=== PATIENT | female | born 1975 | race Hispanic/Latino ===

== ENCOUNTER 2017-04-13 00:35 | Inpatient (IN) | payer MEDICAID, OTHER ==
[2017-04-13] VITALS (11 sets, daily range): BP systolic 124–143; BP diastolic 62–86; PULSE 63–71; RESP 16–20; O2SAT 94–100
[~2017-04-13] VITALS: Ht 160 cm; Wt 87.2 kg
--- NOTE | 2017-04-13 01:34 | ED.REPORT ---
HPI-Abd Pain F Under 42 Date of Service April 13, 2017 ED Provider: Bal Naranjo DO A healthy 41 year old female presents to the ED with RUQ abdominal pain onset yesterday. The pain is exacerbated with eating. The patient also reports intermittent nausea. She denies hematuria, fever, diarrhea, vomiting, or other symptoms. The patient was seen at [facility] yesterday and was given pain medication but no imaging was done. Nursing Notes Stated Complaint: R SIDED FLANK PAIN Chief Complaint: Female Abdominal Pain Nursing Notes Reviewed: Yes Allergies: Coded Allergies: No Known Allergies (Verified , 12/18/04) General Time Seen by MD: 01:33 Chief Complaint Abdominal pain Hx Obtained From: Patient Arrived By: Walk-in Sudden in Onset?: No Onset Occurred: Yesterday Symptom Duration: Since onset Location: : RUQ Quality: Painful Severity: Current: Moderate Severity: Maximum: Moderate Exacerbated by: Eating Recent Healthcare: Recent doctor visit Past Medical History Past Medical History None reported Past Surgical History None reported Smoking History Unknown if Ever Smoker Social History Other Social History: Good social support Ambulatory Status Independent Review of Systems Constitutional: Denies: Fever Respiratory: Denies: Non-productive cough, Shortness of breath GI: Reports: Abdominal pain (RUQ), Nausea (Intermittent), Denies: Diarrhea, Vomiting Female: Denies: Hematuria Complete sys rev & neg: except as marked. Physical Exam Initial Vital Signs Vital Signs (First) Date Time Temp Pulse Resp B/P Pulse Ox O2 Delivery O2 Flow Rate FiO2 04/13/17 00:37 36.4 68 16 135/83 99 Room Air Initial VS: Reviewed Head / Eyes: Atraumatic, Normocephalic ENT: Conjunctiva normal, No scleral icterus Neck: Supple, Full range of motion Skin: Warm, Dry, No cyanosis Neurologic: Alert, Oriented, Nonfocal Psychiatric: Mood/affect normal, Behavior normal, Normal thought content General/Constitutional: Awake, Alert Respiratory / Chest: No respiratory distress Abdomen: Soft Tenderness/Guarding/Rebound: Positive: Blackwell's sign positive, Tender RUQ... Interpretation & Diagnostics Lab Results Interpretation Result Diagram: 04/13/17 0150 04/13/17 0150 Test 04/13/17 01:50 04/13/17 02:10 White Blood Count 10.8th/mm3 (3.8-10.1) Red Blood Count 4.28mil/mm3 (3.90-5.20) Hemoglobin 10.5g/dL (12.0-15.6) Hematocrit 33.6% (35.0-46.0) Mean Corpuscular Volume 78.5fL (81-100) Mean Corpuscular Hemoglobin 24.5pg (27.0-35.0) Mean Corpuscular Hemoglobin Concent 31.3% (32.0-37.0) Red Cell Distribution Width 16.4% (12.3-15.4) Platelet Count 255bil/L (150-400) Neutrophils (%) (Auto) 65.1% (40-74) Lymphocytes (%) (Auto) 21.7% (14-46) Monocytes (%) (Auto) 9.8% (4-12) Eosinophils (%) (Auto) 2.5% (0-5) Basophils (%) (Auto) 0.6% (0-3) Sodium Level 137mEq/L (134-144) Potassium Level 4.3mEq/L (3.5-5.2) Chloride Level 104mEq/L (97-108) Carbon Dioxide Level 21mmol/L (18-29) Blood Urea Nitrogen 8mg/dL (6-20) Creatinine 0.43mg/dL (0.57-1.00) Estimat Glomerular Filtration Rate 234mL/min (>59) Glucose Level 101mg/dL (60-99) Lactic Acid Level 0.8mmol/L (0.4-2.0) Calcium Level 10.4mg/dL (8.5-10.1) Magnesium Level 1.9mg/dL (1.6-2.6) Total Bilirubin 0.3mg/dL (0.0-1.2) Aspartate Amino Transf (AST/SGOT) 91U/L (0-50) Alanine Aminotransferase (ALT/SGPT) 110U/L (0-32) Alkaline Phosphatase 163U/L (25-150) Total Protein 8.1g/dL (6.4-8.4) Albumin 4.1g/dL (3.4-5.0) Lipase 28U/L (13-60) Urine Color Yellow (YELLOW) Urine Appearance Clear (CLEAR,HAZY) Urine pH 6.5 (5.0-8.0) Urine Specific [place] 1.015 (1.003-1.035) Urine Protein Negativemg/dL (NEG,TRACE) Urine Glucose (UA) Negativemg/dL (NEGATIVE) Urine Ketones Negativemg/dL (NEGATIVE) Urine Occult Blood Negative (NEGATIVE) Urine Nitrite Negative (NEGATIVE) Urine Bilirubin Negative (NEGATIVE) Urine Urobilinogen Normalmg/dL (NORMAL) Urine Leukocyte Esterase Trace (NEGATIVE) Urine RBC 0-2/hpf (0-2) Urine WBC 0-5/hpf (0-5) Urine Epithelial Cells Few/hpf (NONE-MOD) Urine Crystals None seen (NONE SEEN) Urine Bacteria Few/hpf (NONE-FEW) Urine Hyaline Casts None/lpf (NONE) Urine Granular Casts None seen (NONE SEEN) Urine Waxy Casts None seen (NONE SEEN) Urine Red Blood Cell Casts None seen (NONE SEEN) Urine White Blood Cell Casts None seen (NONE SEEN) Urine Mucus None seen (None Seen) Urine Trichomonas None seen (NONE SEEN) Urine Yeast None (NONE SEEN) Urine Culture Reflexed Indicated Re-Eval/Medical Decision Med Decision/Clinical Course 41-year-old female presents with right upper quadrant pain. She is found to have tenderness or positive clinical Blackwell's. She has no white blood cell count and transaminases. Her alkaline phosphatase is also elevated. We will place an IV and treat her pain symptomatically with IV Dilaudid. We will perform an ultrasound to evaluate for acute cholecystitis. Care endorsed to Dr. Diaz at the conclusion of my shift. Ultrasound reveals gallbladder wall thickening and multiple stones but no evidence of pericholecystic fluid and no ductal dilatation. Discussed with Dr. Duran will admit for cholecystectomy today. Admission orders written. Zosyn given. Transported in stable condition. Re-Evaluation/Progress : Time of Eval: 02:50 Patient Status: Condition improved Re-Evaluation/Progress Note: Discussed with patient plan for US and transfer of care to Dr. Diaz at change of shift. She agrees and all questions were addressed. Discharge & Departure Shift Change Sign-Out Patient Care Transferred: Yes (Dr. Diaz) Discussed Complaint(s): Yes Laboratory Evaluation: Ordered, not yet done Imaging Studies: Ordered, not yet done Response to Therapy: Improved Primary Impression: Acute cholecystitis Additional Impressions: Cholelithiases Leukocytosis Leukocytosis type: unspecified Qualified Code: D72.829 - Elevated white blood cell count, unspecified Abnormal liver enzymes Disposition: ADMITTED TO HOSPITAL Discharge Condition All VS Reviewed: Yes Referrals: NOPCP (PCP) [facility] Care Transferred to: Dr. iDaz Care Transferred at: 03:00 Scribe Attestation Portions of this note were transcribed by Tarah Deluca. I, Dr. Naranjo, personally performed the history, physical exam, and medical decision-making; I reviewed and confirmed the accuracy of the information in the transcribed note. Signed by: Rik Oquendo, 04/13/2017, 03:15 copies to: [facility] Bal Naranjo DO April 13, 2017 01:34 TARAH DELUCA April 13, 2017 01:41 Tc Diaz MD April 13, 2017 06:44
[2017-04-13] MEDS ORDERED: 0.9% Sodium Chloride 1,000 ML IV ONE (01:38)
[2017-04-13] MEDS ORDERED: HYDROmorphone 1 mg/mL Inj IVPUSH PRN ×2 (01:40→20:00)
[2017-04-13] MEDS: Ondansetron 2 mg/mL 2 mL Inj IVPUSH PRN ×2 (02:20→05:00)
[2017-04-13 02:29] LABS: BASOPHILS % (AUTO) 0.6 % (0-3); EOSINOPHILS % (AUTO) 2.5 % (0-5); MONOCYTES % (AUTO) 9.8 % (4-12); Magnesium 1.9 mg/dL (1.6-2.6); Mean Corpuscular Hemoglobin 24.5 pg (27.0-35.0); Mean Corpuscular Volume 78.5 fL (81-100); NEUTROPHILS % (AUTO) 65.1 % (40-74); Platelet Count 255 bil/L (150-400)
[2017-04-13 02:36] LABS: APPEARANCE,URINE CLEAR (CLEAR,HAZY); COLOR,URINE YELLOW (YELLOW); OCCULT BLOOD,URINE NEGATIVE (NEGATIVE); PH,URINE 6.5 (5.0-8.0); UROBILINOGEN,URINE NORMAL (NORMAL)
[2017-04-13] MEDS ORDERED: Piperacillin-Tazo 3.375 Gm Inj 3.375 GM in Dextrose 5% Minibag Plus 50 ML IV ONE (05:15)
[2017-04-13] MEDS ORDERED: Lactated Ringer's 1,000 ML IV SCH ×2 (06:02→19:58)
[2017-04-13] MEDS ORDERED: MetoCLOpramide 5 mg/mL 2 mL Inj IVPUSH PRN ×3 (06:05→20:00)
[2017-04-13] MEDS ORDERED: Ondansetron 2 mg/mL 2 mL Inj IVPUSH PRN ×3 (06:05→20:00)
[2017-04-13] MEDS ORDERED: HYDROmorphone PCA 0.2 mg/mL 30 mL Inj IV PRN ×2 (06:05→12:05)
[2017-04-13] MEDS ORDERED: Neostigmine 1 mg/mL 10 mL Inj ONE (07:10)
[2017-04-13] MEDS ORDERED: Glycopyrrolate 0.2 MG/ML 1mL Inj ONE (07:10)
[2017-04-13] MEDS ORDERED: Ondansetron 2 mg/mL 2 mL Inj ONE (07:10)
[2017-04-13] MEDS ORDERED: Propofol 10,000 mCg/mL 20 mL Inj ONE (07:10)
[2017-04-13] MEDS ORDERED: Rocuronium 10 mg/mL 5 mL Inj ONE (07:10)
[2017-04-13] MEDS ORDERED: Dexamethasone 4 mg/mL Inj ONE (07:10)
[2017-04-13 07:41] LABS: INR 0.92 ratio
--- NOTE | 2017-04-13 08:49 | HP ---
[address] [address] HISTORY AND PHYSICAL PATIENT: CRISTEL SAMANO : 1975 MR#: [id number] ADMIT: 04/13/2017 JOB ID: [id number] CHIEF COMPLAINT: Cholelithiasis possible cholecystitis. HISTORY OF PRESENT ILLNESS: The patient is a 41-year-old female who presented to the emergency room overnight due to abdominal pain. This pain actually started Friday morning which is 2 days ago. It was described to be in the epigastric region and gradually moved over to the right upper quadrant. This is the first time she has never had this discomfort. It is described to be a sharp pain that comes and goes. The patient has some associated nausea, but no vomiting. The patient denies any fevers or chills. Workup last night in the emergency department demonstrated a white blood count of 10.8, she has some elevation of her AST, ALT, as well as alkaline phosphatase and then ultrasound that suggests cholelithiasis with some gallbladder wall thickening. The patient was given some pain meds in the emergency department. The patient has been started on IV antibiotics. PAST MEDICAL HISTORY: None. MEDICATIONS: None. ALLERGIES: None. SOCIAL HISTORY: The patient is single. She does have 5 children. She has a boyfriend. She works for [employer], and she lives in [place]. FAMILY HISTORY: Does show gallbladder disease in her mother and her sister. REVIEW OF SYSTEMS: Positive for the epigastric and right upper quadrant pain with nausea. All other systems reviewed were negative. PHYSICAL EXAMINATION: The patient is currently in the hospital bed in no acute distress. Her BMI is 33.7, temperature was 36.7, blood pressure 137/86, pulse is 71, respirations 16. Head is normocephalic, atraumatic. There is no scleral icterus. Neck is supple. Heart is regular rate. Lungs are clear bilaterally. Abdomen is obese. It is mildly tender to palpation in the epigastric and also right upper quadrant location. There is no palpable masses. There is no peritonitis at this time. Extremities shows no clubbing and no cyanosis. Neurologically, patient is Korean speaking and follows commands. LABORATORY EXAMINATION: Last night showed a white blood count of 10.8, hematocrit 33.6, platelet count is 255. Sodium is 137, potassium 4.3, creatinine 0.43. Total bilirubin 0.3, AST 91, ALT 110. Alkaline phosphatase of 163 and her lipase is 28. Her urine was negative. The primary overnight ultrasound report shows cholelithiasis and gallbladder wall thickening concerning for cholecystitis. ASSESSMENT: This is a 41-year-old female with cholelithiasis and possible cholecystitis. The patient should remain n.p.o. and she should be continued on IV antibiotics. We will try to get her into the operating room for later today. The patient understands and agrees with the plan and has signed a surgical consent.
--- NOTE | 2017-04-13 08:55 | DRSVH ---
PROCEDURE: US ABDOMEN, LIMITED ([id number]) INDICATIONS: RUQ pain TECHNIQUE: Real-time focused scanning was performed of the abdomen, with image documentation. COMPARISON: None. FINDINGS: Multiple gallstones noted within the gallbladder. Gallbladder wall is slightly thickened to 3.7 mm. No pericholecystic fluid. Common bile duct is within normal limits measuring 5 mm in diamete r. No sonographic Blackwell sign. Liver is sonographically normal. IMPRESSION: Cholelithiasis with slight gallbladder wall thickening concerning for early acute cholecy stitis. Please correlate with clinical data. Dictated by: Kiki Palmer MD, PhD on 04/13/2017 at 8:53 Approved by: Kiki Palmer MD, PhD on 04/13/2017 at 8:53
[2017-04-13] MEDS: Lactated Ringer's 1,000 ML IV SCH ×2 (11:55→21:55)
[2017-04-13] MEDS: Piperacillin-Tazo 3.375 Gm Inj 3.375 GM in Dextrose 5% Minibag Plus 50 ML IV SCH (13:37)
--- NOTE | 2017-04-13 14:59 | NUR ---
Admit Pt arrived at 0645 via w/c, transfers w/ ease, A&Ox3. Pt is an otherwise very healthy and well adult, nausea and pain well managed w/ dilaudid and zofran. Pt awaiting surgery lap kelin at 4pm today.
--- NOTE | 2017-04-13 15:48 | NUR ---
Social Work Note: Screen Note Data& Assessment: EMR reviewed. Patient is a 41 year old female admitted on 04/13/17 for Acute Cholecystitis. Pt has [facility] Admin for insurance coverage and no primary care physician. Pt lives in [place] and is independent at baseline. Pt is currently SBA in her room. No discharge needs identified at this time. SW to continue to follow if any needs arise. Plan: Anticipated discharge home via POV when medically ready. No discharge needs identified at this time. SW to continue to follow if any needs arise. Rika Ayala, ANAMARIA, ACM
--- NOTE | 2017-04-13 18:06 | PCM.HPANE ---
Patient Data Surgeon Admitting Provider:Eliu Duran MD Attending Provider:Eliu Duran MD Primary Care Physician:Maame Other Provider:Corrina Law Anesthesia Reason for Visit Acute Cholecystitis Ht/WT & BMI Height (Feet): 5 Height (Inches): 3.00 Weight (Kilograms): 87.200 Body Mass Index 34.06 Allergies Coded Allergies: No Known Allergies (Verified , 12/18/04) Past Anesthesia History Anesthesia History: Denies:: Fam Anesthesia Reaction, Fam Malignant Hypertherm Diabetes History Hx Diabetes?: No MRSA MRSA: No Medications No Active Prescriptions or Reported Meds History History of ENT Problems?: No HEENT History: Denies:: Cataracts Dysphagia Glaucoma Sinus Problem Denture Type: None Teeth Condition: Within Normal Limits Hx of Heart Problems?: No Cardiovascular History: Denies:: Congestive Heart Failure Edema Hypertension Hx of Respiratory Problem?: No Respiratory History: Denies:: Asthma Pneumonia Tuberculosis Hx Neurologic Problems?: No Neurological History: Denies:: CVA Seizures Hx of GI Problems?: No Hx of Problems?: No Genitourinary History: Denies:: Kidney Stones Urinary Tract Infection Female Hx: Denies:: Endometriosis Pelvic Inflammatory Hx Musculoskeletal Problems?: No Musculoskeletal History: Denies:: Musculoskeletal Trauma Psycho Social History: Positive for:: Anxiety Denies:: Bipolar Disorder Hx Depression Suicide Attempt Hx Surgeries?: No Hx Any Other Health Problems?: No Other History: Denies:: Cancer History Blood Transfusions: Positive for:: Accept Blood Products? Denies:: Blood Transfuse Reaction Blood Transfusions Hx Diabetes: No Hx Alcohol Use: NoHx Substance Use: No Smoking Status: Unknown if Ever Smoker Stop/Bang Treated for Sleep Apnea?: No Do You Have a CPAP Machine?: No S-Snoring: Do You Snore Loudly: No T-Tired: feel tired, fatigued: No O-Obsered: Observed not breath: No P-Blood Pressure: treated: No B- Body Mass Index > 35 kg/m2: No A- Age over 50: No N- Neck Large Circumference: No G- Gender Male: No TAMIKO Total Score: 0 TAMIKO Risk Assessment: Low Risk, <3 Yes Risk Assessment Category Category 1A: Patient has history of documented sleep apnea, and HAS NOT received any narcotic, sedative or anesthesia administration during this stay. Category 1B: Patient has history of documented sleep apnea, and HAS received any narcotic , sedative or anesthesia administration during this stay Category 2: Patient has SUSPECTED Obstructive Sleep Apnea, and HAS received any narcotic , sedative or anesthesia administration during this stay. Category 3: Patient has SUSPECTED Obstructive Sleep Apnea and HAS NOT received narcotic, sedative or anesthesia administration during this stay. Category 4: Outpatient in Procedural Areas with known sleep apnea or who screen positive for High Risk via the STOP/BANG questionnaire. Exam Exam Vital Signs Vital Signs Date Time Temp Pulse Resp B/P Pulse Ox O2 Delivery O2 Flow Rate FiO2 04/13/17 12:33 36.9 63 16 124/78 99 Room Air General Appearance: Alert, Oriented X3, Cooperative, No Acute Distress HEENT/AIRWAY: MP 4 Lungs: Clear to Auscultation, Normal Air Movement Heart: Exam Unremarkable, Regular Rate/Rhythm, No Murmurs/Rubs/Gallops Meds/Labs/Diagnostics Admission Meds Current Medications Sodium Chloride 1,000 ml @ 0 mls/hr Q0M ONCE IV Last administered on 02:19; Start 04/13/17 at 01:38; Stop 04/13/17 at 01:40; Status DC Piperacillin Sod/ Tazobactam Sod 3.375 gm/Dextrose/ Water 50 ml @ 100 mls/hr ONCE ONCE IV Last administered on 04/13/17 05:19; Start 04/13/17 at 05:15; Stop 04/13/17 at 05:44; Status DC Lactated Ringer's 1,000 ml @ 100 mls/hr Q10H IV Last administered on 06:02; Start 04/13/17 at 06:02; Stop 04/13/17 at 08:08; Status DC Piperacillin Sod/ Tazobactam Sod/ Dextrose/Water (Zosyn 3.375 Gm Inj/D5W Minibag Plus) 50 ml @ 12.5 mls/hr Q8H IV Last administered on 04/13/17 13:37 ; Start 04/13/17 at 13:30 Labs Test 04/13/17 01:50 04/13/17 02:10 04/13/17 07:10 White Blood Count 10.8th/mm3 (3.8-10.1) Red Blood Count 4.28mil/mm3 (3.90-5.20) Hemoglobin 10.5g/dL (12.0-15.6) Hematocrit 33.6% (35.0-46.0) Mean Corpuscular Volume 78.5fL (81-100) Mean Corpuscular Hemoglobin 24.5pg (27.0-35.0) Mean Corpuscular Hemoglobin Concent 31.3% (32.0-37.0) Red Cell Distribution Width 16.4% (12.3-15.4) Platelet Count 255bil/L (150-400) Neutrophils (%) (Auto) 65.1% (40-74) Lymphocytes (%) (Auto) 21.7% (14-46) Monocytes (%) (Auto) 9.8% (4-12) Eosinophils (%) (Auto) 2.5% (0-5) Basophils (%) (Auto) 0.6% (0-3) Sodium Level 137mEq/L (134-144) Potassium Level 4.3mEq/L (3.5-5.2) Chloride Level 104mEq/L (97-108) Carbon Dioxide Level 21mmol/L (18-29) Blood Urea Nitrogen 8mg/dL (6-20) Creatinine 0.43mg/dL (0.57-1.00) Estimat Glomerular Filtration Rate 234mL/min (>59) Glucose Level 101mg/dL (60-99) Lactic Acid Level 0.8mmol/L (0.4-2.0) Calcium Level 10.4mg/dL (8.5-10.1) Magnesium Level 1.9mg/dL (1.6-2.6) Total Bilirubin 0.3mg/dL (0.0-1.2) Aspartate Amino Transf (AST/SGOT) 91U/L (0-50) Alanine Aminotransferase (ALT/SGPT) 110U/L (0-32) Alkaline Phosphatase 163U/L (25-150) Total Protein 8.1g/dL (6.4-8.4) Albumin 4.1g/dL (3.4-5.0) Lipase 28U/L (13-60) Urine Color Yellow (YELLOW) Urine Appearance Clear (CLEAR,HAZY) Urine pH 6.5 (5.0-8.0) Urine Specific [place] 1.015 (1.003-1.035) Urine Protein Negativemg/dL (NEG,TRACE) Urine Glucose (UA) Negativemg/dL (NEGATIVE) Urine Ketones Negativemg/dL (NEGATIVE) Urine Occult Blood Negative (NEGATIVE) Urine Nitrite Negative (NEGATIVE) Urine Bilirubin Negative (NEGATIVE) Urine Urobilinogen Normalmg/dL (NORMAL) Urine Leukocyte Esterase Trace (NEGATIVE) Urine RBC 0-2/hpf (0-2) Urine WBC 0-5/hpf (0-5) Urine Epithelial Cells Few/hpf (NONE-MOD) Urine Crystals None seen (NONE SEEN) Urine Bacteria Few/hpf (NONE-FEW) Urine Hyaline Casts None/lpf (NONE) Urine Granular Casts None seen (NONE SEEN) Urine Waxy Casts None seen (NONE SEEN) Urine Red Blood Cell Casts None seen (NONE SEEN) Urine White Blood Cell Casts None seen (NONE SEEN) Urine Mucus None seen (None Seen) Urine Trichomonas None seen (NONE SEEN) Urine Yeast None (NONE SEEN) Urine Culture Reflexed Indicated Prothrombin Time 9.8sec (8.1-12.5) Prothromb Time International Ratio 0.92ratio Plan Impression Patient chart reviewed, patient interviewed and anesthestic plan with risks, benefits, and alternatives discussed, and informed consent obtained. NPO per Anesth. Guidelines: Yes ASA Physical Status: ASA2 Mod Systemic Disease Anesthetic Plan: GA Bene/Risks/Altern/Consents: Yes HP Complete Prior to Induction: Yes Lon Hernandez MD April 13, 2017 18:06
[2017-04-13] MEDS ORDERED: Lactated Ringer's 1,000 ML IV ONE ×2 (19:19→21:24)
[2017-04-13] MEDS ORDERED: Bupivacaine-MPF 0.25%/EPI 30 mL Inj INFILTRATE ONE (19:45)
[2017-04-13] MEDS ORDERED: Lactated Ringer's 500 ML IV PRN (19:58)
[2017-04-13] MEDS ORDERED: fentaNYL-PF 50 mCg/mL 2 mL Inj IVPUSH PRN (20:00)
[2017-04-13] MEDS ORDERED: Phenylephrine 10,000 mCg/mL Inj IVPUSH PRN (20:00)
[2017-04-13] MEDS ORDERED: Labetalol 5 mg/mL 4 mL Inj IV PRN (20:00)
[2017-04-13] MEDS ORDERED: Dexamethasone 4 mg/mL Inj IVPUSH PRN (20:00)
[2017-04-13] MEDS ORDERED: EPHEDrine Sulfate 50 mg/mL Inj IVPUSH PRN (20:00)
[2017-04-13] MEDS ORDERED: Atropine 0.4 mg/mL Inj IVPUSH PRN (20:00)
--- NOTE | 2017-04-13 20:44 | DRSVH ---
PROCEDURE: X-RAY OPERATIVE CHOLANGIOGRAM ([id number]) INDICATIONS: CHOLECYSTITIS COMPARISON: None. FINDINGS: Biliary ducts: The surgeon injected contrast into the biliary ducts after cannulation of the cystic duct stump. Visualized intra- and extrahepatic bile ducts are normal in caliber, without strictures. Focal filling defects noted in the distal common bile duct suspicious for choledocholithiasis. No e vidence for iatrogenic ductal injury. Duodenum: Contrast flows promptly through the sphincter of Oddi into the duodenum, which appears nor mal in caliber. IMPRESSION: Multiple filling defects in the distal common bile duct suspicious for choledocholithias is. Please correlate with real time findings. Dictated by: Kiki Palmer MD, PhD on 04/13/2017 at 20:41 Approved by: Kiki Palmer MD, PhD on 04/13/2017 at 20:42
--- NOTE | 2017-04-13 21:09 | PCM.ANEP1 ---
Post Anesthesia PACU Phase 1 Assessment Vital Signs Vital Signs Date Time Temp Pulse Resp B/P Pulse Ox O2 Delivery O2 Flow Rate FiO2 04/13/17 21:05 36.8 71 18 133/70 100 Simple Mask 8 Anesthetic Administered: GA Level of Alertness: Awake, talking NICHOLSON's with Equal Strength: No Pain: No Pain Scale Score: 5 Nausea or Vomiting: No CV Function and Hydration: Yes Airway Device: Endotrachial Tube Oxygen Delivery: Simple Mask Lungs: Clear to Auscultation, Normal Air Movement Dermatome Level: Full Sensation PACU Phase 2 Assessment Complications: No Follow up Care: N/A Patient Instructions Provided: Yes Lon Hernandez MD April 13, 2017 21:09
--- NOTE | 2017-04-13 21:35 | OP ---
[address] [address] OPERATIVE REPORT PATIENT: CRISTEL SAMANO : 1975 MR#: [id number] ADMIT: 04/13/2017 JOB ID: [id number] DATE OF SURGERY: 04/13/2017 SURGEON: Eliu Duran MD. CLEANER AND POLISHER: Chico Lizama PA-C. ANESTHESIA: General. PREOPERATIVE DIAGNOSIS(ES): Cholelithiasis and possible cholecystitis. POSTOPERATIVE DIAGNOSIS(ES): Cholelithiasis and possible cholecystitis. PROCEDURE: Laparoscopic cholecystectomy with intraoperative cholangiogram. INDICATION FOR PROCEDURE: The patient is a 41-year-old female with epigastric and right upper quadrant pain with ultrasound findings of gallstones and gallbladder wall thickening. PRINCIPAL FINDING: Successful laparoscopic cholecystectomy. There were signs of cholecystitis. The intraoperative angiogram demonstrated numerous filling defects in the distal common bile duct. The contrast does enter into the duodenum. PROCEDURE COURSE: The patient was brought to the operating table and was given general anesthesia. The patient had been receiving IV antibiotics and she was provided with SCDs. A time-out was performed. The patient's abdomen was then prepped and draped in the usual sterile fashion. Next, local anesthetic was injected into the infraumbilical location and a 5 mm stab incision was made. Pneumoperitoneum was established using a Veress needle. Next, a 5 mm trocar was then placed and the laparoscope was then introduced. A 12 mm port was then placed in the subxiphoid location and two additional 5 mm ports were then placed in the right lateral abdomen. The gallbladder was then retracted cephalad. Some omental adhesions were taken down using electrocautery. Dissection of the Calot triangle was then carried out. The cystic duct was able to be circumferentially isolated. A clip was then placed on the gallbladder cystic duct junction, and a partial transection of the cystic duct was made. Intraoperative cholangiogram demonstrated filling of the proximal and distal biliary anatomy. However, there were several filling defects in the distal common bile duct. The contrast does enter the duodenum. Next, the cholangiocatheter was then was then removed from the patient. Two additional clips were then placed on the proximal cystic duct and the duct was then transected. The cystic artery was similarly identified, clipped, and divided. Electrocautery was then used to detach the gallbladder from the gallbladder fossa. The specimen was then placed into the EndoCatch bag and removed from the patient. There were definite several large stones within the gallbladder. Irrigation of the right upper quadrant was carried out and suctioned. Hemostasis was verified. Inspection of the clips showed that they were intact, and there were no signs of arterial bleeding or bile leak at the end the case. Next, we turned our attention to the subxiphoid port. The fascial defect there was then reapproximated using 0 Vicryl suture using the Endo Close device. Next, CO2 was allowed to escape and all the trocars were then removed from the patient. Skin edges were all reapproximated using absorbable sutures. Steri-Strips and sterile dressing was then placed over each wound. By the end of procedure, needle counts and sponge counts were correct. The patient was then extubated and taken to the recovery room in stable satisfactory condition.
--- NOTE | 2017-04-13 21:45 | NUR ---
Transfer Patient arrived to unit, alert and oriented, able to transfer self from or bed to unit bed independently. IV intact, patent and asymptomatic. BUILDING WRECKER set up and educated patient and family on proper use. Orders for Zosyn conflicted with current LR order. Surgeon notified and order for compatible fluids obtained. Patient comfortable at this time.
[2017-04-14] VITALS (19 sets, daily range): BP systolic 118–144; BP diastolic 67–82; PULSE 52–82; RESP 12–20; O2SAT 94–100
[2017-04-14] MEDS: Piperacillin-Tazo 3.375 Gm Inj 3.375 GM in Dextrose 5% Minibag Plus 50 ML IV SCH ×4 (00:48→21:17)
[2017-04-14] MEDS: Dextrose 5% 1,000 ML IV SCH ×3 (03:03→21:20)
[2017-04-14 05:30] LABS: BASOPHILS % (AUTO) 0.1 % (0-3); EOSINOPHILS % (AUTO) 0 % (0-5); MONOCYTES % (AUTO) 1.8 % (4-12); Mean Corpuscular Hemoglobin 24.2 pg (27.0-35.0); Mean Corpuscular Volume 78.4 fL (81-100); NEUTROPHILS % (AUTO) 92.2 % (40-74); Platelet Count 232 bil/L (150-400)
[2017-04-14] MEDS ORDERED: Neostigmine 1 mg/mL 10 mL Inj ONE (07:47)
[2017-04-14] MEDS ORDERED: Rocuronium 10 mg/mL 5 mL Inj ONE (07:47)
[2017-04-14] MEDS ORDERED: fentaNYL-PF 50 mCg/mL 2 mL Inj ONE ×2 (07:47→07:56)
[2017-04-14] MEDS ORDERED: Propofol 10,000 mCg/mL 20 mL Inj ONE ×2 (07:47→07:56)
[2017-04-14] MEDS ORDERED: Glycopyrrolate 0.2 MG/ML 1mL Inj ONE (07:47)
[2017-04-14] MEDS ORDERED: Ondansetron 2 mg/mL 2 mL Inj ONE (07:56)
[2017-04-14] MEDS ORDERED: Dexamethasone 4 mg/mL Inj ONE (07:56)
--- NOTE | 2017-04-14 08:37 | PCM.PNSURG ---
Subjective Date of Service: April 14, 2017 Date of Service: April 14, 2017 Visit Information: Reason for Visit Acute Cholecystitis Surgery/Surgery Date lap kelin 04/13/17 Post-Op Day # Date of Admission: April 13, 2017 at 06:18 Hospital Day # Subjective: Patient states mild abdominal pain, 2 out of 10 while at rest, Will increase upon movement though is well controlled with pain medication. Is able to swallow clear liquids. No nausea or vomiting. Able to ambulate independently, voiding urine without difficulty. Denies bowel movement, or flatus at this point. Denies fever or chills. White count increased from 10.8 to17.2, patient afebrile all other vital signs remained stable. Objective Vital Sign- Last 8 Hours Date Time Temp Pulse Resp B/P Pulse Ox O2 Delivery O2 Flow Rate FiO2 04/14/17 08:17 18 97 04/14/17 06:16 18 98 04/14/17 04:51 36.8 80 18 136/75 98 Room Air 04/14/17 01:30 16 97 Intake and Output- Last 8 Hour 04/14/17 Cumulative From/Thru 07:00 04/13/17 00:37 - 04/14/17 06:35 Intake Total 619 ml 3607 ml Output Total 800 ml Balance 619 ml 2807 ml Intake Oral 200 ml 200 ml IV Total 419 ml 3407 ml Output Urine Total 800 ml # Voids 1 1 General: Alert, Oriented X3, Cooperative Lungs: Clear to Auscultation, Normal Air Movement Heart: Exam Unremarkable, Regular Rate/Rhythm Abdomen: Benign, Appropriately tender SURGICAL WOUND : Wound General Appearence: Steri Strips, Intact, No Erythema, No Discharge, No Inflammatory Changes Result Diagram: 04/14/17 0445 04/14/17 0445 Diagnostics: . US ABDOMEN, LIMITED IMPRESSION: Cholelithiasis with slight gallbladder wall thickening concerning for early acute cholecystitis. Please correlate with clinical data. Dictated by: Kiki Palmer MD, PhD on 04/13/2017 at 8:53 X-RAY OPERATIVE CHOLANGIOGRAM IMPRESSION: Multiple filling defects in the distal common bile duct suspicious for choledocholithiasis. Please correlate with real time findings. Dictated by: Kiki Palmer MD, PhD on 04/13/2017 at 20:41 Assessment & Plan Impression Assessment and Plan: 1. Cholelithiasis with probable cholecystitis status post laparoscopic cholecystectomy with intraoperative cholangiogram - ERCP 2/2 retained stones - GI consult - Transitioned from PUBLISHING EDITOR pain medications to oral - Continue to encourage ambulation - Continue antibiotics - Continue to monitor CBC - Restart heparin subcutaneous Problems: VTE Prophylaxis: Sub-Q Heparin (Unfractionated) Resuscitation Status: CPR: Attempt Resuscitation Attending Statement: I agree with Dr. Howard's assessment and plan. ERCP per GI service. NONI HOWARD DO April 14, 2017 08:37 Eliu Duran MD April 17, 2017 07:45
[2017-04-14] MEDS ORDERED: Heparin 5,000 Unit/mL Inj SUBQ SCH (08:50)
[2017-04-14] MEDS: oxyCODONE-Acetamin 5-325 mg Tablet PO PRN ×3 (10:24→22:44)
--- NOTE | 2017-04-14 11:01 | PCM.CHPMED ---
Subjective Date of Service: April 14, 2017 Provider requesting consult: Eliu Duran MD Primary Physician: Admitting Physician: Eliu Duran MD Primary Care Physician: Nopcp Attending Physician: Eliu Duran MD Chief Complaint: Chief Complaint: Right upper quadrant pain History of Present Illness: 41-year-old female presented to the ED on April 13 due to 2 days of sharp and intermittent right upper quadrant abdominal pain with some associated nausea but no vomiting. Patient states that this pain started on April 11 and has increasingly gotten worse. She denies any fever or chills associated with this pain. Patient has not had this pain before and states that is worse postprandially. In the ED the patient was noted to have elevated LFTs and alkaline phosphatase, as well as anemia and a mild leukocytosis. Patient underwent cholecystectomy yesterday by Dr. Duran with cholangiogram showing multiple filling defects consistent and concerning for choledocholithiasis. GI was consultative for ERCP. Review of Systems: See history of present illness PMH Past Medical History Patient states she has no past medical history Bedside Blood Glucose: 147 Surgical History Patient states she has no past surgical history Home Medications Patient denies taking her medication Allergies: Coded Allergies: No Known Allergies (Verified , 12/18/04) Family History Family History Denies history of cancer Social History Hx Alcohol Use: NoHx Substance Use: No Smoking Status: Unknown if Ever Smoker Exam Vital Signs Vital Sign - Last Date Time Temp Pulse Resp B/P Pulse Ox O2 Delivery O2 Flow Rate FiO2 04/14/17 10:16 18 99 04/14/17 04:51 36.8 80 136/75 Room Air 04/13/17 21:15 8 Intake and Output 04/13/17 04/13/17 04/14/17 Cumulative From/Thru 15:00 23:00 07:00 04/13/17 00:37 - 04/14/17 06:35 Intake Total 988 ml 1000 ml 619 ml 3607 ml Output Total 800 ml 800 ml Balance 188 ml 1000 ml 619 ml 2807 ml Intake Oral 0 ml 200 ml 200 ml IV Total 988 ml 1000 ml 419 ml 3407 ml Output Urine Total 800 ml 800 ml # Voids 1 1 General: Alert, Oriented X3, Cooperative, No Acute Distress Eyes: PERRLA Mouth: Mucous Membr Moist/[place] Neck: Supple Chest & Lungs: Chest Wall Normal, Clear to auscultation & percussion Cardiovascular: Exam Unremarkable, Regular Rate/Rhythm Abdomen: Tender, Distended (mild), Normoactive bowel tones Musculoskeletal: Unremarkable Extremities: No cyanosis/clubbing/edma bilat Neurological: Grossly Neurologically Intact Lab and Diagnostics Result Diagram: 04/14/17 0445 04/14/17 0445 Assessment & Plan Assessment 41-year-old female who presented with acute cholecystitis and choledocholithiasis identified on cholangiogram during cholecystectomy. Patient seems to be much improved and is currently in no acute distress. Multiple filling defects reported on cholangiogram suspicious for choledocholithiasis. Patient scheduled to undergo ERCP today with Dr. Guy. Patient had lipase tomorrow morning as well as liquid diet until tomorrow morning. At that time and patient is doing well she can be advanced as tolerated, and if she can tolerate a soft diet she can be discharged. Please see procedure note for additional recommendations. Thank you for allowing us to participate in the care of this patient Problems: VTE Prophylaxis: Sub-Q Heparin (Unfractionated) VTE Mechanical Devices: Intermittant Pneumatic CD Resuscitation Status: CPR: Attempt Resuscitation Attending Statement Pt seen and examined agree with Dr Rios's H and P and plan as outlined. Risk and benefits of ERCP discussed with patient and she is agreeable to proceed. Fan Sargent DO April 14, 2017 11:01 Micah Gomez MD April 15, 2017 07:48 Thomas Guy MD Apr 29, 2017 12:57
[2017-04-14] MEDS ORDERED: Lactated Ringer's 1,000 ML IV ONE (12:27)
--- NOTE | 2017-04-14 13:42 | PCM.HPANE ---
Patient Data Surgeon Admitting Provider:Eliu Duran MD Attending Provider:Eliu Duran MD Primary Care Physician:Maame Other Provider:Corrina Law Anesthesia Reason for Visit Acute Cholecystitis ACUTE CHOLECYSTITIS Ht/WT & BMI Height (Feet): 5 Height (Inches): 3.00 Weight (Kilograms): 87.200 Body Mass Index 34.06 Allergies Coded Allergies: No Known Allergies (Verified , 12/18/04) Past Anesthesia History Anesthesia History: Denies:: Fam Anesthesia Reaction, Fam Malignant Hypertherm Diabetes History Hx Diabetes?: No Current Bedside Blood Glucose: 147 MRSA MRSA: No Medications Home Meds Incl Beta Grace: No No Active Prescriptions or Reported Meds History History of ENT Problems?: No HEENT History: Denies:: Cataracts Dysphagia Glaucoma Sinus Problem Denture Type: None Teeth Condition: Within Normal Limits Tooth Decay Inflamed Gums Hx of Heart Problems?: No Cardiovascular History: Denies:: Congestive Heart Failure Edema Hypertension Hx of Respiratory Problem?: No Respiratory History: Denies:: Asthma Pneumonia Tuberculosis Hx Neurologic Problems?: No Neurological History: Denies:: CVA Seizures Hx of GI Problems?: No Hx of Problems?: No Genitourinary History: Denies:: Kidney Stones Urinary Tract Infection Female Hx: Denies:: Endometriosis Pelvic Inflammatory Hx Musculoskeletal Problems?: No Musculoskeletal History: Denies:: Musculoskeletal Trauma Psycho Social History: Positive for:: Anxiety Denies:: Bipolar Disorder Hx Depression Suicide Attempt Hx Surgeries?: No Hx Any Other Health Problems?: No Other History: Denies:: Cancer History Blood Transfusions: Positive for:: Accept Blood Products? Denies:: Blood Transfuse Reaction Blood Transfusions Hx Diabetes: NoBedside Blood Glucose: 147 Hx Alcohol Use: NoHx Substance Use: No Smoking Status: Unknown if Ever Smoker Stop/Bang Treated for Sleep Apnea?: No Do You Have a CPAP Machine?: No S-Snoring: Do You Snore Loudly: No T-Tired: feel tired, fatigued: No O-Obsered: Observed not breath: No P-Blood Pressure: treated: No B- Body Mass Index > 35 kg/m2: No A- Age over 50: No N- Neck Large Circumference: No G- Gender Male: No TAMIKO Total Score: 0 TAMIKO Risk Assessment: Low Risk, <3 Yes Risk Assessment Category Category 1A: Patient has history of documented sleep apnea, and HAS NOT received any narcotic, sedative or anesthesia administration during this stay. Category 1B: Patient has history of documented sleep apnea, and HAS received any narcotic , sedative or anesthesia administration during this stay Category 2: Patient has SUSPECTED Obstructive Sleep Apnea, and HAS received any narcotic , sedative or anesthesia administration during this stay. Category 3: Patient has SUSPECTED Obstructive Sleep Apnea and HAS NOT received narcotic, sedative or anesthesia administration during this stay. Category 4: Outpatient in Procedural Areas with known sleep apnea or who screen positive for High Risk via the STOP/BANG questionnaire. Low Risk, <3 Yes Exam Exam Vital Signs Vital Signs Date Time Temp Pulse Resp B/P Pulse Ox O2 Delivery O2 Flow Rate FiO2 04/14/17 10:16 18 99 04/14/17 08:17 18 97 04/14/17 06:16 18 98 General Appearance: Alert, Oriented X3, Cooperative, No Acute Distress HEENT/AIRWAY: MP 2, MP 4, Neck Movement (from), Mouth Opening (Notable decay on multiple teeth, black at gum line. Front Tooth upper is black at gum line) Lungs: Clear to Auscultation, Normal Air Movement Heart: Exam Unremarkable, Regular Rate/Rhythm Meds/Labs/Diagnostics Admission Meds Current Medications Bupivacaine HCl/ Epinephrine Bitart 30 ml 30 ml STK-MED ONCE INFILTRATE Last administered on 04/13/17 19:45; Start 04/13/17 at 19:45; Stop 04/13/17 at 19:57 ; Status DC Lactated Ringer's (Lr) 1,000 ml @ ud STK-MED ONCE IV Last administered on 04/13 19:19; Start 04/13/17 at 19:19; Stop 04/13/17 at 19:57; Status DC Scopolamine 1.5 mg 1.5 mg ONCE ONCE TOPICAL Last administered on 04/13/17 21: 14; Start 04/13/17 at 21:10; Stop 04/13/17 at 21:12; Status DC Lactated Ringer's 1,000 ml @ ud STK-MED ONCE IV Last administered on 21:24; Start 04/13/17 at 21:24; Stop 04/13/17 at 21:25; Status DC Dextrose/Water (D5W) 1,000 ml @ 100 mls/hr Q10H IV Last administered on 03:03; Start 04/14/17 at 01:20 Heparin Sodium (Porcine) 5000 unit 5,000 unit Q8 SUBQ Last administered on 04/14 10:24; Start 04/14/17 at 08:50; Stop 04/14/17 at 12:10; Status DC Lactated Ringer's (Lr) 1,000 ml @ 120 mls/hr Q8H20M ONCE IV Last administered on 04/14/17 12:57; Start 04/14/17 at 12:27; Stop 04/14/17 at 20:46 Bedside Blood Glucose: 147 Labs Test 04/13/17 01:50 04/13/17 02:10 04/13/17 07:10 04/14/17 04:45 Lactic Acid Level 0.8mmol/L (0.4-2.0) Magnesium Level 1.9mg/dL (1.6-2.6) Lipase 28U/L (13-60) Urine Color Yellow (YELLOW) Urine Appearance Clear (CLEAR,HAZY) Urine pH 6.5 (5.0-8.0) Urine Specific [place] 1.015 (1.003-1.035) Urine Protein Negativemg/dL (NEG,TRACE) Urine Glucose (UA) Negativemg/dL (NEGATIVE) Urine Ketones Negativemg/dL (NEGATIVE) Urine Occult Blood Negative (NEGATIVE) Urine Nitrite Negative (NEGATIVE) Urine Bilirubin Negative (NEGATIVE) Urine Urobilinogen Normalmg/dL (NORMAL) Urine Leukocyte Esterase Trace (NEGATIVE) Urine RBC 0-2/hpf (0-2) Urine WBC 0-5/hpf (0-5) Urine Epithelial Cells Few/hpf (NONE-MOD) Urine Crystals None seen (NONE SEEN) Urine Bacteria Few/hpf (NONE-FEW) Urine Hyaline Casts None/lpf (NONE) Urine Granular Casts None seen (NONE SEEN) Urine Waxy Casts None seen (NONE SEEN) Urine Red Blood Cell Casts None seen (NONE SEEN) Urine White Blood Cell Casts None seen (NONE SEEN) Urine Mucus None seen (None Seen) Urine Trichomonas None seen (NONE SEEN) Urine Yeast None (NONE SEEN) Urine Culture Reflexed Indicated Prothrombin Time 9.8sec (8.1-12.5) Prothromb Time International Ratio 0.92ratio White Blood Count 17.2th/mm3 (3.8-10.1) Red Blood Count 4.30mil/mm3 (3.90-5.20) Hemoglobin 10.4g/dL (12.0-15.6) Hematocrit 33.7% (35.0-46.0) Mean Corpuscular Volume 78.4fL (81-100) Mean Corpuscular Hemoglobin 24.2pg (27.0-35.0) Mean Corpuscular Hemoglobin Concent 30.9% (32.0-37.0) Red Cell Distribution Width 16.2% (12.3-15.4) Platelet Count 232bil/L (150-400) Neutrophils (%) (Auto) 92.2% (40-74) Lymphocytes (%) (Auto) 5.6% (14-46) Monocytes (%) (Auto) 1.8% (4-12) Eosinophils (%) (Auto) 0% (0-5) Basophils (%) (Auto) 0.1% (0-3) Sodium Level 135mEq/L (134-144) Potassium Level 4.4mEq/L (3.5-5.2) Chloride Level 103mEq/L (97-108) Carbon Dioxide Level 19mmol/L (18-29) Blood Urea Nitrogen 6mg/dL (6-20) Creatinine 0.49mg/dL (0.57-1.00) Estimat Glomerular Filtration Rate 201mL/min (>59) Glucose Level 172mg/dL (60-99) Calcium Level 10.3mg/dL (8.5-10.1) Total Bilirubin 0.5mg/dL (0.0-1.2) Aspartate Amino Transf (AST/SGOT) 56U/L (0-50) Alanine Aminotransferase (ALT/SGPT) 85U/L (0-32) Alkaline Phosphatase 155U/L (25-150) Total Protein 7.1g/dL (6.4-8.4) Albumin 3.6g/dL (3.4-5.0) Plan Impression Patient chart reviewed, patient interviewed and anesthestic plan with risks, benefits, and alternatives discussed, and informed consent obtained. NPO per Anesth. Guidelines: Yes ASA Physical Status: ASA2 Mod Systemic Disease Anesthetic Plan: GA Bene/Risks/Altern/Consents: Yes HP Complete Prior to Induction: Yes Neville Costello MD April 14, 2017 13:42
--- NOTE | 2017-04-14 16:13 | NUR ---
Off Unit Patient off floor to ENDO via stretcher.
[2017-04-14] MEDS ORDERED: Lactated Ringer's 500 ML IV PRN (16:42)
[2017-04-14] MEDS ORDERED: Lactated Ringer's 1,000 ML IV SCH (16:42)
[2017-04-14] MEDS ORDERED: HYDROmorphone 1 mg/mL Inj IVPUSH PRN (16:45)
[2017-04-14] MEDS ORDERED: fentaNYL-PF 50 mCg/mL 2 mL Inj IVPUSH PRN (16:45)
[2017-04-14] MEDS ORDERED: Phenylephrine 10,000 mCg/mL Inj IVPUSH PRN (16:45)
[2017-04-14] MEDS ORDERED: Ondansetron 2 mg/mL 2 mL Inj IVPUSH PRN (16:45)
[2017-04-14] MEDS ORDERED: Dexamethasone 4 mg/mL Inj IVPUSH PRN (16:45)
[2017-04-14] MEDS ORDERED: EPHEDrine Sulfate 50 mg/mL Inj IVPUSH PRN (16:45)
--- NOTE | 2017-04-14 17:09 | PCM.ANEP1 ---
Post Anesthesia PACU Phase 1 Assessment Vital Signs Vital Signs Date Time Temp Pulse Resp B/P Pulse Ox O2 Delivery O2 Flow Rate FiO2 04/14/17 15:54 64 12 125/72 100 Room Air 04/14/17 14:10 37.9 65 16 122/73 99 Room Air 04/14/17 10:16 18 99 Anesthetic Administered: GA Level of Alertness: Sleepy, easy to arouse NICHOLSON's with Equal Strength: Yes Pain: No Nausea or Vomiting: No CV Function and Hydration: Yes Airway Device: Oxygen Delivery: Simple Mask Lungs: Normal Air Movement PACU Phase 2 Assessment Complications: No Follow up Care: No Patient Instructions Provided: N/A Neville Costello MD April 14, 2017 17:09
--- NOTE | 2017-04-14 17:50 | NUR ---
Back on Unit Patient back on floor from [facility] in stable condition. VSS. Patient reported 8/10 abdominal pain and slight nausea, PACU administered anti nausea medications prior to transferring to floor. Boyfriend at bedside. Call light and tray table within reach. Will continue to monitor patient hourly.
--- NOTE | 2017-04-14 22:25 | ENDO ---
[address] [address] ENDOSCOPY PROCEDURE PATIENT: CRISTEL SAMANO : 1975 MR#: [id number] ADMIT: 04/13/2017 JOB ID: [id number] DATE OF PROCEDURE: PROCEDURE: Endoscopic retrograde cholangiopancreatography. INDICATION: Choledocholithiasis. Patient had a laparoscopic cholecystectomy yesterday and had an intraoperative cholangiogram which demonstrated multiple filling defects in the distal common bile duct. SEDATION: Please see Dr. Neville Costello' anesthesia report for details regarding general anesthesia. INSTRUMENT USED: [id number]. PROCEDURE DETAILS: After informed consent was obtained, the patient was brought into the GI suite, where after a time-out she was placed under general anesthesia and then placed in the standard ERCP position. Initial residential program director film was taken which showed clips to be in the area in the right upper quadrant consistent with patient's recent history of cholecystectomy. Next, the standard side-viewing duodenal scope was introduced through the bite block without difficulty to the second portion of the duodenum. The ampulla was identified and appeared unremarkable. Bile was seen flowing from the ampulla. Using a [employer] [place] [employer], biliary access was achieved with wire guidance. Initial cholangiogram demonstrated a dilated common bile duct measuring approximately 12 mm. There were multiple filling defects in the distal CBD. There was filling of the intrahepatic ducts which appeared unremarkable. Next, a moderate-sized sphincterotomy was performed followed by balloon sweep which extruded several cholesterol type stones. Following initial two sweeps with extrusion of stones three more sweeps were performed for a total of five sweeps, with extruded no further stones or sludge. Final cholangiogram demonstrated a dilated common bile duct measuring approximately 12 mm without any further filling defects. There was a well circumscribed area of contrast noted adjacent to the scope. However, with further suctioning we did see this disappeared and was not concerning for possible perforation. Scope was then removed. Limited luminal views to the second portion duodenum was unremarkable. IMPRESSION: Endoscopic retrograde cholangiopancreatography status post sphincterotomy with balloon sweep of multiple cholesterol type stones. COMPLICATIONS: None immediately. ESTIMATED BLOOD LOSS: Less than 5 mL. RECOMMENDATIONS: 1. Continue to follow LFTs. 2. Start clear liquid diet and advance as tolerated.
--- NOTE | 2017-04-14 23:26 | NUR ---
Activity Pt up to BR independently, multiple family members here this evening. Pt reports pain at 4/10 which is tolerable. Pt tolerating PO intake that family had brought. Advised surgeon would like her to stay on clear liquids through the night then advance to general in AM if tolerating. Pt agreed. 0 c/o NV. Pt states she is passing gas and would like to D/C tomorrow.
[2017-04-15 05:15] VITALS: BP 114/69; PULSE 64; RESP 16; O2SAT 98
[2017-04-15 05:24] LABS: BASOPHILS % (AUTO) 0.2 % (0-3); EOSINOPHILS % (AUTO) 0.8 % (0-5); MONOCYTES % (AUTO) 9.3 % (4-12); Mean Corpuscular Hemoglobin 24.3 pg (27.0-35.0); Platelet Count 218 bil/L (150-400)
[2017-04-15] MEDS: Piperacillin-Tazo 3.375 Gm Inj 3.375 GM in Dextrose 5% Minibag Plus 50 ML IV SCH ×2 (06:08→13:30)
[2017-04-15] MEDS: Dextrose 5% 1,000 ML IV SCH (07:20)
[2017-04-15] MEDS: oxyCODONE-Acetamin 5-325 mg Tablet PO PRN ×2 (07:58→16:12)
--- NOTE | 2017-04-15 07:59 | DRSVH ---
PROCEDURE: X-RAY E.R.C. BILIARY DUCTS ([id number]) INDICATIONS: R/O CBD STONES TECHNIQUE: Fluoroscopic spot films were acquired by the gastroenterology service during ERCP procedu re. COMPARISON: [facility], US, ABDOMEN LTD, 04/13/2017, 2:37. [facility], CR, X R CHOLANGIOGRAM OPERATIVE, 04/13/2017, 20:07. FINDINGS: Exam is limited to two submitted images. Within these limits the extrahepatic and central portions of the intrahepatic bile ducts are partially opacified demonstrating no definite intralumina l filling defects. A sweeping balloon catheter also is noted. Cholecystectomy clips. IMPRESSION: Limited examination demonstrating partial opacification of the extrahepatic bile duct as well as the central portion of the intrahepatic bile ducts demonstrating no definite intraluminal jesica ling defects. Recommend correlation with real-time examination. Dictated by: Yayo MARSH Interpreted: Daisy Paul MD on 04/15/2017 at 7:56 Transcribed by: KAYLA on 04/15/2017 at 7:58 Approved by: Daisy Paul M.D. on 04/15/2017 at 10:30
--- NOTE | 2017-04-15 08:36 | PCM.PNSURG ---
Subjective Date of Service: April 15, 2017 Date of Service: April 15, 2017 Visit Information: Reason for Visit Acute Cholecystitis Surgery/Surgery Date lap kelin 04/13/17 Post-Op Day # 2 s/p lap kelin, pod#1 s/p ercp Date of Admission: April 13, 2017 at 06:18 Hospital Day # Subjective: Patient states that she feel much better since surgery and ercp yesterday. Passing flatus. No BM. Denies f/c. Postop General: No Complaints, No Shortness of Breath, No Chest Pain Gastrointestinal: No N/V, Passing Flatus Pain Management: PO (percocet) Objective Objective pleasant, comfortable appearing female in no apparent distress. Afebrile. Vital Sign- Last 8 Hours Date Time Temp Pulse Resp B/P Pulse Ox O2 Delivery O2 Flow Rate FiO2 04/15/17 05:15 36.7 64 16 114/69 98 Room Air Intake and Output- Last 8 Hour 04/15/17 Cumulative From/Thru 07:00 04/13/17 00:37 - 04/15/17 05:15 Intake Total 825 ml 5032 ml Output Total 1450 ml 3650 ml Balance -625 ml 1382 ml Intake Oral 720 ml 920 ml IV Total 105 ml 4112 ml Output Urine Total 1450 ml 3650 ml # Voids 1 # Bowel Movements 0 0 General: Alert, Oriented X3, Cooperative, No Acute Distress Neck: Supple Lungs: Clear to Auscultation Heart: Exam Unremarkable Abdomen: Soft, Appropriately tender (improving ruq tenderness.) SURGICAL WOUND : Wound General Appearence: Steri Strips, Intact, Well Approximated, Incision Healing Dressing & Drainage Status: Intact, Dressing Removed (outer bandaids removed.), No Purulent Drainage, No Odor Catheters: None Result Diagram: 04/15/17 0500 04/15/17 0500 Diagnostics: WBC trending down 11.9 from 17.2 Lipase now 19 from 28 AST 39 ALT elevated at 67 but trending down from 85 T.bili remains NL Assessment & Plan Impression Satisfactory post op course s/p Lap kelin, s/p ERCP Problems: Plan Ambulate Clears for breakfast, if tolerates then soft diet for lunch D/C this pm if tolerates diet Follow up in [facility] clinic in 2 weeks with CMP and CBC prior patient satisfied with plan. Pain Management: Percocet VTE Prophylaxis: Sub-Q Heparin (Unfractionated) Resuscitation Status: CPR: Attempt Resuscitation Good Baltaazr PA-C April 15, 2017 08:36
[2017-04-15] MEDS ORDERED: OXYC1TAB24 PO (08:41)
--- NOTE | 2017-04-15 08:48 | PCM.DISURG ---
Surgical Discharge Instruction Date of Service April 15, 2017 Dates of Hospitalization Date of Hospital Admission April 13, 2017 at 06:18 Providers Admitting Physician: Eliu Duran MD Primary Care Physician: Nopcp Attending Physician: Eliu Duran MD Discharge Diagnosis Discharge Diagnosis Choledocholithiasis status post laparoscopic cholecystectomy and Endoscopic retrograde cholangiopancreatography Post Operative diagnosis Same Diet Discharge Diet: Low fat Activity Discharge Activity-General: Try not to overdue, Balance rest and activity, No lifting >15 pounds for 2 weeks, No driving while taking narcotic Dressing and Incisional Care Dressing Care: Allow Steri Stripes to fall off Hygiene: May shower, DO NOT soak incision under water, NO bathtub, hot tub or whirlpool Additional Instructions Discharge Instructions Remain off work until Friday, April 21, 2017 at which time she may return to work performing light duty. Light duty to be no lifting over 15 lbs until recheck in clinic approximately 1 week later. Follow Up Plan Follow Up Plan You will follow up with General Surgery [facility] in 2 weeks with CBC and CMP labs obtained just prior to the appointment. Mid-level Provider (F9): Chico Lizama PA-C Follow-up appointment: Weeks (2) Call your provider for: Fever, Chills, Increasing abdominal pain, Nausea, Vomiting, Wound redness, Increasing wound pain, Warmth to touch, Discharge @ incision, pus discharge Good Baltazar PA-C April 15, 2017 08:48
--- NOTE | 2017-04-15 10:38 | PATH ---
SURGICAL PATHOLOGY Attending Physician:Eliu Duran M.D. CASE STATUS: Signed Out PATIENT NAME: CRISTEL SAMANO PID: [id number] : 1975 DATE COLLECTED:04/13/2017 00:00 SPECIMEN: Gallbladder CLINICAL HISTORY: ACUTE CHOLECYSTITIS GALLBLADDER FINAL DIAGNOSIS: 1.GALLBLADDER: CHOLELITHIASIS AND CHRONIC ACTIVE CHOLECYSTITIS. NO EVIDENCE OF MALIGNANCY. ICD10 K80.6 K81.2 GROSS DESCRIPTION: The specimen is received in one formalin filled container labeled with the patient's name, sublabeled "gallbladder" and consists of an opened 6.5 x 2.0 x 1.5 CM gallbladder. The serosa is smooth. The wall is 0.2-0.6 CM in thickness. The mucosa is a pink-chappell in color. The lumen contains approximately 10 yellow-chappell calculi which range in size from 0.7-1.2 CM in greatest dimension. 5 credit and collections representative sections are submitted in one cassette. 04/14/2017 [facility] MICRO DESCRIPTION: See diagnosis. ICD-9 CODES: CPT CODES: 1: 03207 Electronically Signed Out Cindy Short MD Located Within [facility] Pathology [facility] [address], [place] [address] Technical component performed at [facility], [address] [place] [address] Ave[address], [place], [address]
--- NOTE | 2017-04-15 10:46 | NUR ---
Social Work- Readiness for Discharge Data: EMR reviewed. Patient is on day 2 of hospitalization for Acute Cholecystitis. Pt is POD 2 s/p lap-kelin and POD 1 ercp. Pt is not medically stable to discharge, anticipate discharge later today. Pt's diet is advancing to soft from liquid today. SW met with pt at bedside today regarding discharge plan. Pt is independent at baseline. No discharge needs identified at this time. Pt to discharge home with family to transport via POV. SW to continue to follow if any needs arise. Assessment: Pt who is independent at baseline. Plan: Anticipated discharge home via POV when medically ready.No discharge needs identified at this time. SW to continue to follow if any needs arise. MACI Yanez
--- NOTE | 2017-04-15 11:04 | PCM.PNMED ---
Subjective Date of Service April 15, 2017 Subjective GI Progress Note Patient underwent successful ERCP with sphincterectomy and balloon sweep yesterday with removal of small stones. This morning patient denies any nausea or vomiting, abdominal pain, diarrhea or constipation. She also denies fever and chills. Lipase was ordered for this morning was normal as are the LFTs. Patient has not had anything significant to eat yet. Patient wishes to go home Exam Vital Signs Vital Sign - Last Date Time Temp Pulse Resp B/P Pulse Ox O2 Delivery O2 Flow Rate FiO2 04/15/17 05:15 36.7 64 16 114/69 98 Room Air 04/14/17 17:00 8 Intake and Output 04/14/17 04/14/17 04/15/17 Cumulative From/Thru 15:00 23:00 07:00 04/13/17 00:37 - 04/15/17 05:15 Intake Total 600 ml 825 ml 5032 ml Output Total 1400 ml 1450 ml 3650 ml Balance -800 ml -625 ml 1382 ml Intake Oral 0 ml 720 ml 920 ml IV Total 600 ml 105 ml 4112 ml Output Urine Total 1400 ml 1450 ml 3650 ml # Voids 1 # Bowel Movements 0 0 0 Exam Gen.: Or joint alert and cooperative Cardiovascular: Regular rate and rhythm Respiratory: CTA bilaterally Abdomen: Positive bowel sounds, tenderness to moderate palpation, mildly distended Extremities: No edema Psych: Appropriate affect Lab and Diagnostics Result Diagram: 04/15/17 0500 04/15/17 0500 Assessment & Plan 41 year old female admitted 04/13/2017 for epigastric and right upper quadrant pain with abdominal ultrasound findings of gallstones and gallbladder wall thickening. s/p lap choly with intraop cholangiogram 04/13/2017 showing retained stones in CBD. s/p ercp 04/14/2017 with biliary phincterotomy with balloon sweep of multiple cholesterol type stones. 04/15/2017- pt doing well post ercp. abdominal pain improved comparison to prior to ercp. tbili nl. Recs: 1) start clear liquid diet in am. If tolerate, then advance to soft diet. If tolerate soft diet, then ok to d/c home today will sign off. VTE Prophylaxis: Sub-Q Heparin (Unfractionated) VTE Mechanical Devices: Intermittant Pneumatic CD Resuscitation Status: CPR: Attempt Resuscitation Attending Statement pt seen and examined agree with Dr Rios's note Fan Sargent DO April 15, 2017 11:04 Micah Gomez MD April 15, 2017 14:29 Thomas Guy MD Apr 29, 2017 12:58
--- NOTE | 2017-04-15 15:27 | NUR ---
Social Work- Discharge Data: EMR reviewed. Patient is on day 2 of hospitalization for Acute Cholecystitis. Pt is POD 2 s/p lap-kelin and POD 1 ercp. Pt to discharge tonight, discharge orders are active. Pt's diet has advanced. Pt is independent at baseline. No discharge needs identified at this time. Pt to discharge home with family to transport via POV. Assessment: Pt who is independent at baseline. Plan: Pt to discharge home via POV when medically ready. No discharge needs identified at this time. MACI Yanez
[2017-04-15 16:15] VITALS: BP 119/70; PULSE 74; RESP 17; O2SAT 99
--- NOTE | 2017-04-15 16:29 | NUR ---
Discharge Patient discharged home. IV DC'd and intact. Dressings CDI. Discharge instructions given with no questions. RX Percocet sent with patient. Patient teaching involved when to return to work, shower ok but no baths. Patient informed to call the General Surgery clinic to follow up with PA in 2 weeks. Patient gathered all belongings, including multiple phone chargers. ROBOTICS SPECIALIST escorted patient out via W/C.
--- NOTE | 2017-04-15 18:03 | PCM.DC.SUR ---
Discharge Summary Date of Service: April 15, 2017 Date of Hospital Admission: April 13, 2017 at 06:18 Date of Operation(s): March Date of Discharge: March Diagnosis at Time of Discharge choledocholithiasis Problems: Operation Laparoscopic cholecystectomy with intraoperative cholangiogram Brief History and Physical: 41-year-old female presented to the ED on April 13 due to 2 days of sharp and intermittent right upper quadrant abdominal pain with some associated nausea but no vomiting. Patient states that this pain started on April 11 and has increasingly gotten worse. She denies any fever or chills associated with this pain. Patient has not had this pain before and states that is worse postprandially. In the ED the patient was noted to have elevated LFTs and alkaline phosphatase, as well as anemia and a mild leukocytosis. Patient underwent cholecystectomy yesterday by Dr. Duran with cholangiogram showing multiple filling defects consistent and concerning for choledocholithiasis. GI was consultative for ERCP. Consultants: Gastroenterology Hospital Course: The patient presented to the ED with complaints of abdominal pain and was found to have a white blood count of 10.8, she has some elevation of her AST, ALT, as well as alkaline phosphatase and then ultrasound that suggestscholelithiasis with some gallbladder wall thickening. She was then admitted and taken to the operating room for a laparoscopic cholecystectomy and cholangiogram. Please see operative notes for details of the operation. Cholangiogram showed multiple filling defects in the common bile duct and gastroenterology was then consulted for endoscopic retrograde cholangiopancreatography. Please refer to the procedure notes for details. She tolerated both procedures well and on postoperative day 2 she was found to have improved pain control and tolerated a oral diet. Her lab values showed improved leukocytosis and decreasing lipase. She was then discharged to home in good condition. Pathology: CHOLELITHIASIS AND CHRONIC ACTIVE CHOLECYSTITIS. NO EVIDENCE OF MALIGNANCY. Disposition: Good condition to home. Follow-up Plan: Patient to be off work thru remainder of this week then return to work on light duty lifting 15lbs or less. She will be following up with general surgery PA in 2 weeks with prior CMP and CBC. oxyCODONE-Acetaminophen 5-325 mg (oxyCODONE-Acetaminophen 5-325 mg) 1 Each Tablet 1 TAB PO Q4H PRN PRN For Pain Good Baltazar PA-C April 15, 2017 18:03
== END 2017-04-15 16:24 | disposition home or self-care (01) | DRG 418 ==
LOC: SED 00:35 → MOC 06:18 → OSC 19:03
PROVIDERS: ADMIT Surgery; ATTEND Surgery
PROC: BF00YZZ Plain Radiography of Bile Ducts using Other Contrast (ICD-10-PCS; 2017-04-13)
PROC: 0FT44ZZ Resection of Gallbladder, Percutaneous Endoscopic Approach (ICD-10-PCS; principal; 2017-04-13 18:00)
PROC: 0FC98ZZ Extirpation of Matter from Common Bile Duct, Via Natural or Artificial Opening Endoscopic (ICD-10-PCS; 2017-04-14)
DX: K80.43 Calculus of bile duct with acute cholecystitis with obstruction (principal); K91.86 Retained cholelithiasis following cholecystectomy